=== PATIENT | male | born 1970 | race Caucasian/White ===

== ENCOUNTER 2019-03-31 11:59 | Inpatient (IN) ==
[2019-03-31] MEDS ORDERED: Thiamine (B-1) 100 MG in 0.9 % Sodium Chloride 100 ML IVPB STA (12:15)
[2019-03-31] MEDS ORDERED: Lactulose 200 GM, Sodium Chloride IRRigation 700 ML RC ONE (12:15)
[2019-03-31] MEDS ORDERED: 0.9 % Sodium Chloride 500 ML IVC ONE (12:15)
--- NOTE | 2019-03-31 12:17 | Emergency Department Note ---
Disposition Clinical Impression: Delirium due to general medical condition, Hepatic encephalopathy, Hyperkalemia, Hyponatremia Acute renal failure Qualifiers: Acute renal failure type: unspecified Qualified Code(s): N17.9 - Acute kidney failure, unspecified Acute hepatic failure Qualifiers: Hepatic coma status: with hepatic coma Qualified Code(s): K72.01 - Acute and subacute hepatic failure with coma Disposition: Admitted As Inpatient Referrals: Richie Garzon MD [Primary Care Provider] - Time of Disposition: 13:35 Altered Mental Status HPI - General Stated Complaint: unresponsive Time Seen by Provider: 03/31/19 12:13 Source: family, EMS Mode of arrival: EMS Limitations: altered mental status Nursing Notes Reviewed: Yes Vital Signs Reviewed: Yes - History of Present Illness HPI Narrative: Patient has a history of hepatic encephalopathy and 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 He according to his who is POA has been on the [facility] liver transplant list, was admitted there last week and discharged just 7 days ago. She states that he is a "DNR CC and had been considering hospice. She states that he is "suffered enough" She indicates that she had had him on lactulose doses 3 times daily and that he was taking those yesterday. He was unresponsive this morning though she was unable to wake him up. She is not really sure when this occurred since he had not been seen normal since last night. She states that he had been complaining of some headache and abdominal pain. Patient has not used drugs in 3-1/2 years. Does not use alcohol EMS indicates that they gave him Narcan without any change in his mental status but those vital signs were good with a pulse of 83 and a pulse ox of 98% MD complaint: altered mental status Onset (ago): hour(s) Timing confirmed by: spouse Context: drug abuse (None for 3-1/2 years), history of similar presentation (Return to episodes of hepatic encephalopathy) Associated symptoms: Reports: headaches, malaise Treatments prior to arrival: other (Narcan) - Related Data Home Medications Medication Instructions Recorded Confirmed Albuterol Sulfate [Proair Hfa] 2 puff IH Q4H PRN 01/07/18 03/31/19 Fluticasone/Salmeterol [Advair 1 puff IH BID 01/07/18 03/31/19 250-50 Diskus] Tiotropium [Spiriva] 2 puff IH 0700 01/07/18 03/31/19 Omeprazole [PriLOSEC] 40 mg PO BID 05/26/18 03/31/19 Rifaximin [Xifaxan] 550 mg PO BID 08/13/18 03/31/19 Spironolactone [Aldactone] 200 mg PO BID 08/13/18 03/31/19 Lactulose 20 gm PO DAILY 09/22/18 03/31/19 Bumetanide [Bumex] 3 mg PO DAILY 10/01/18 03/31/19 Cyclobenzaprine HCl 10 mg PO TID PRN 01/26/19 03/31/19 Gabapentin [Neurontin] 300 mg PO TID 01/26/19 03/31/19 Ondansetron HCl [Zofran] 4 mg PO QID PRN 01/26/19 03/31/19 Allergies Allergy/AdvReac Type Severity Reaction Status Date / Time No Known Allergies Allergy Verified 02/14/19 20:22 Limitations: ROS unobtainable due to patients medical condition Past Medical History - Past Medical History Medical history: Reports: cirrhosis, CHF, COPD, hepatitis, hypertension, kidney stones, liver disease Surgical history: Reports: no surgical history Psychiatric history: Reports: no psych history - Social History Smoking Status: Current every day smoker Smokeless Tobacco Status: No Alcohol use: Reports: none Drug use: Reports: none Physical Exam Constitutional: Patient is unresponsive to verbal stimuli, grimaces to painful stimuli. Skin color is icteric. Appears well hydrated, body habitus obese. He appears chronically ill . Head: Normocephalic and atraumatic. External ear exam normal Nose: Nose normal. Mouth/Throat: Uvula is midline, oropharynx is clear and moist and mucous membranes are normal. Eyes: Scleral icterus. Pupils are equal, round, and reactive to light. Corneal reflex noted to be normal Neck: Normal range of motion and phonation normal. Neck supple. No JVD Cardiovascular: Normal rate, regular rhythm, normal heart sounds. Pulmonary/Chest: He arrives in Respiratory distress. With increase Respiratory Effort and diminished breath sounds throughout. He has blowing respirations. His pulse ox is 98% on room air. I was concerned that he was not protecting his airway so a nasal trumpet was placed in the right nares. Abdominal: Soft. Slightly distended without obvious fluid wave and bowel sounds are diminished. no masses. Prominence with mass at the right upper quadrant Musculoskeletal: Good distal pulses. Soft compartments. Brisk cap refill. Extremities:Intact peripheral pulses. 1+ dependent bilateral Edema. Extremity skin color icteric, no calf palpable cords. Neurological: GCS 7. Patient is obtunded .unable to test for motor deficits Skin: Skin is warm, dry and intact. color is jaundice, cap refill is quick Psychiatric: Patient nonverbal Course - Reevaluation(s) Reevaluation #1: Patient unchanged. has produced papers that she is patient's POA and continues to emphasize she does not want him resuscitated with extreme means but treated for medical issues as possible Evaluation reveals severe hyperkalemia, hyponatremia, acute renal failure, hepatic failure, hepatic encephalopathy. Treatment for these have been ordered at this time. Time: 13:02 Reevaluation #2: ReTurned to bedside for reevaluation. Patient is unchanged. Vital signs are normal but he remains blowing respirations, even and respiratory rate of 18. Pulse ox 100% on 2 L nasal cannula. Multiple family members present. I discussed with them the patient's profound renal insufficiency, hepatic failure, dehydration, hepatic encephalopathy, hyponatremia, hyperkalemia and its treatment. They agreed that the patient should be treated with reasonable means for these issues but without mechanical ventilation, electricity through his heart, or CPR. The family indicates that he was made a DNR at [facility] when he was released last Friday and was being considered for taken off the transplant list. Family and patient's who is P OA are comfortable with this plan and request that he be hospitalized here instead of transfer back up to [facility]. I believe this is reasonable. I have instituted med orders for his severe hyperkalemia. At 1333 I paced a call to Dr. Grimaldo medical education coordinator for hospitalist to discuss the patient's case. Time: 13:32 Reevaluation #3: Discussed case with Dr. Grimaldo who agrees to accept the patient to the floor. He has requested that I enter initial orders and he will see him in a timely fashion. Time: 14:08 Vital Signs Temperature 98.0 F 03/31/19 11:59 Pulse Rate 73 03/31/19 11:59 Respiratory Rate 16 03/31/19 11:59 Blood Pressure 127/45 03/31/19 11:59 O2 Sat by Pulse Oximetry 96 03/31/19 11:59 Temperature 98.0 F 03/31/19 11:59 Pulse Rate 85 03/31/19 13:57 Respiratory Rate 14 03/31/19 13:57 Blood Pressure 122/50 03/31/19 13:57 O2 Sat by Pulse Oximetry 94 03/31/19 13:57 Oxygen Delivery Oxygen Delivery Nasal Cannula Altered Mental Status - MDM Narrative Medical decision making narrative: Symptoms likely due to hepatic encephalopathy. Patient at bedside indic ates that she is power of tax associate attorney. They have discussed CODE STATUS and he does not want to be resuscitated with all kinds of tubes. She states that he signed forms in the detention last week but they do not have them with him. She contacted family members and had a discussion by phone and then came back to me indicating that she wanted to on her the patient's request for DNR CC. For this reason I did not intubate this patient to otherwise would have likely been a candidate for because of his low GCS and evidence of tachypnea and respiratory distress. I have treated him within the wound of the request for DNR CC - Medical Records Medical records reviewed: Yes I reviewed the patient's medical records. - Lab Data Lab results reviewed: Yes I reviewed the patient's lab results. Result diagrams: 03/31/19 12:27 03/31/19 12:27 Lab Results 03/31/19 03/31/19 03/31/19 Range/Units 12:27 12:27 12:27 WBC 9.0 (4.3-11.1) K/mcL RBC 3.40 L (4.19-5.50) M/mcL Hgb 11.7 L (12.9-16.9) g/dL Hct 33.1 L (37.5-50.1) % MCV 97.4 (83.0-100.0) fL MCH 34.4 H (28.0-33.3) pg MCHC 35.3 (31.6-35.5) g/dL RDW 15.1 H (11.5-14.5) % Plt Count 51 L (140-400) K/mcL MPV 13.0 H (9.4-12.4) fL Immature Gran % 0.6 (0-4) % Seg Neutrophils % 73.6 % Lymphocytes % 13.2 % Monocytes % 9.7 % Eosinophils % 2.6 % Basophils % 0.3 % Neutrophils # 6.6 (1.6-8.9) K/mcL Lymphocytes # 1.2 (0.6-4.6) K/mcL Monocytes # 0.9 (0.0-1.3) K/mcL Eosinophils # 0.2 (0.0-0.6) K/mcL Basophils # 0.0 (0.0-0.2) K/mcL PT 17.8 H (9.4-12.1) Seconds INR 1.6 APTT 38.0 H (26.0-36.0) Seconds VBG pH (7.32-7.42) pH Units VBG pCO2 (41-51) mmHg VBG pO2 (25-50) mmHg VBG HCO3 (21-27) mEq/L Sodium 126 L (136-145) mEq/L Potassium 6.2 H (3.5-5.1) mEq/L Chloride 95 L (98-107) mEq/L Carbon Dioxide 21 L (23-29) mEq/L BUN 40 H (6-20) mg/dL Creatinine 2.16 H (0.70-1.30) mg/dL Est GFR ( Amer) 40 L (> 60) Est GFR (Non-Af Amer) 33 L (> 60) BUN/Creatinine Ratio 19 (6-26) Glucose 114 H (70-105) mg/dL Calculated Osmolality 273 L (280-300) Lactic Acid (0.5-2.2) mmol/L Calcium 9.4 (8.6-10.3) mg/dL Total Bilirubin 5.9 H (0.3-1.0) mg/dL Direct Bilirubin 2.3 H (0.0-0.2) mg/dL Indirect Bilirubin 3.6 H (0.0-1.2) mg/dL AST 60 H (13-39) Units/L ALT 49 (7-52) Units/L Alkaline Phosphatase 57 (34-104) Units/L Ammonia (16-53) mcmol/L Creatine Kinase 43 (30-223) Units/L Troponin I < 0.03 (< 0.04) ng/mL Serum Total Protein 5.9 L (6.4-8.9) g/dL Albumin 3.7 (3.5-5.7) g/dL Globulin 2.2 L (2.4-3.5) g/dL Albumin/Globulin Ratio 1.7 (1.1-2.2) Urine Color (Yellow) Urine Clarity (Clear) Urine pH (5.0-8.0) pH Units Ur Specific [place] (1.010-1.025) Urine Protein (Neg-Trace) mg/dL Urine Glucose (UA) (Normal) mg/dL Urine Ketones (Negative) mg/dL Urine Blood (Negative) Urine Nitrite (Negative) Urine Bilirubin (Negative) Urine Urobilinogen (Normal) mg/dL Ur Leukocyte Esterase (Negative) Ur Culture Indicated? (NO) Urine Opiates Screen (Osjnko=578) ng/mL Ur Buprenorphine Scrn (Cutoff=5) ng/mL Ur Barbiturates Screen (Vuxeib=301) ng/mL Ur Phencyclidine Scrn (Cutoff=25) ng/mL Ur Amphetamines Screen (Noycud=8200) ng/mL U Benzodiazepines Scrn (Riqypy=010) ng/mL Urine Cocaine Screen (Cutoff= 300) ng/mL U Marijuana (THC) Screen (Cutoff = 50) ng/mL Ur Drug Screen Interp Ethyl Alcohol < 10 (Less than 10) mg/dL 03/31/19 03/31/19 03/31/19 Range/Units 12:27 12:27 12:38 WBC (4.3-11.1) K/mcL RBC (4.19-5.50) M/mcL Hgb (12.9-16.9) g/dL Hct (37.5-50.1) % MCV (83.0-100.0) fL MCH (28.0-33.3) pg MCHC (31.6-35.5) g/dL RDW (11.5-14.5) % Plt Count (140-400) K/mcL MPV (9.4-12.4) fL Immature Gran % (0-4) % Seg Neutrophils % % Lymphocytes % % Monocytes % % Eosinophils % % Basophils % % Neutrophils # (1.6-8.9) K/mcL Lymphocytes # (0.6-4.6) K/mcL Monocytes # (0.0-1.3) K/mcL Eosinophils # (0.0-0.6) K/mcL Basophils # (0.0-0.2) K/mcL PT (9.4-12.1) Seconds INR APTT (26.0-36.0) Seconds VBG pH 7.46 H (7.32-7.42) pH Units VBG pCO2 30 L (41-51) mmHg VBG pO2 126 H (25-50) mmHg VBG HCO3 21 (21-27) mEq/L Sodium (136-145) mEq/L Potassium (3.5-5.1) mEq/L Chloride (98-107) mEq/L Carbon Dioxide (23-29) mEq/L BUN (6-20) mg/dL Creatinine (0.70-1.30) mg/dL Est GFR ( Amer) (> 60) Est GFR (Non-Af Amer) (> 60) BUN/Creatinine Ratio (6-26) Glucose (70-105) mg/dL Calculated Osmolality (280-300) Lactic Acid 2.7 H (0.5-2.2) mmol/L Calcium (8.6-10.3) mg/dL Total Bilirubin (0.3-1.0) mg/dL Direct Bilirubin (0.0-0.2) mg/dL Indirect Bilirubin (0.0-1.2) mg/dL AST (13-39) Units/L ALT (7-52) Units/L Alkaline Phosphatase (34-104) Units/L Ammonia 277 H (16-53) mcmol/L Creatine Kinase (30-223) Units/L Troponin I (< 0.04) ng/mL Serum Total Protein (6.4-8.9) g/dL Albumin (3.5-5.7) g/dL Globulin (2.4-3.5) g/dL Albumin/Globulin Ratio (1.1-2.2) Urine Color (Yellow) Urine Clarity (Clear) Urine pH (5.0-8.0) pH Units Ur Specific [place] (1.010-1.025) Urine Protein (Neg-Trace) mg/dL Urine Glucose (UA) (Normal) mg/dL Urine Ketones (Negative) mg/dL Urine Blood (Negative) Urine Nitrite (Negative) Urine Bilirubin (Negative) Urine Urobilinogen (Normal) mg/dL Ur Leukocyte Esterase (Negative) Ur Culture Indicated? (NO) Urine Opiates Screen (Jlmoav=914) ng/mL Ur Buprenorphine Scrn (Cutoff=5) ng/mL Ur Barbiturates Screen (Bryjrg=830) ng/mL Ur Phencyclidine Scrn (Cutoff=25) ng/mL Ur Amphetamines Screen (Jiioaf=5716) ng/mL U Benzodiazepines Scrn (Vxdctk=386) ng/mL Urine Cocaine Screen (Cutoff= 300) ng/mL U Marijuana (THC) Screen (Cutoff = 50) ng/mL Ur Drug Screen Interp Ethyl Alcohol (Less than 10) mg/dL 03/31/19 03/31/19 Range/Units 12:51 12:51 WBC (4.3-11.1) K/mcL RBC (4.19-5.50) M/mcL Hgb (12.9-16.9) g/dL Hct (37.5-50.1) % MCV (83.0-100.0) fL MCH (28.0-33.3) pg MCHC (31.6-35.5) g/dL RDW (11.5-14.5) % Plt Count (140-400) K/mcL MPV (9.4-12.4) fL Immature Gran % (0-4) % Seg Neutrophils % % Lymphocytes % % Monocytes % % Eosinophils % % Basophils % % Neutrophils # (1.6-8.9) K/mcL Lymphocytes # (0.6-4.6) K/mcL Monocytes # (0.0-1.3) K/mcL Eosinophils # (0.0-0.6) K/mcL Basophils # (0.0-0.2) K/mcL PT (9.4-12.1) Seconds INR APTT (26.0-36.0) Seconds VBG pH (7.32-7.42) pH Units VBG pCO2 (41-51) mmHg VBG pO2 (25-50) mmHg VBG HCO3 (21-27) mEq/L Sodium (136-145) mEq/L Potassium (3.5-5.1) mEq/L Chloride (98-107) mEq/L Carbon Dioxide (23-29) mEq/L BUN (6-20) mg/dL Creatinine (0.70-1.30) mg/dL Est GFR ( Amer) (> 60) Est GFR (Non-Af Amer) (> 60) BUN/Creatinine Ratio (6-26) Glucose (70-105) mg/dL Calculated Osmolality (280-300) Lactic Acid (0.5-2.2) mmol/L Calcium (8.6-10.3) mg/dL Total Bilirubin (0.3-1.0) mg/dL Direct Bilirubin (0.0-0.2) mg/dL Indirect Bilirubin (0.0-1.2) mg/dL AST (13-39) Units/L ALT (7-52) Units/L Alkaline Phosphatase (34-104) Units/L Ammonia (16-53) mcmol/L Creatine Kinase (30-223) Units/L Troponin I (< 0.04) ng/mL Serum Total Protein (6.4-8.9) g/dL Albumin (3.5-5.7) g/dL Globulin (2.4-3.5) g/dL Albumin/Globulin Ratio (1.1-2.2) Urine Color Yellow (Yellow) Urine Clarity Clear (Clear) Urine pH 7.0 (5.0-8.0) pH Units Ur Specific [place] 1.015 (1.010-1.025) Urine Protein Negative (Neg-Trace) mg/dL Urine Glucose (UA) Normal (Normal) mg/dL Urine Ketones Negative (Negative) mg/dL Urine Blood Negative (Negative) Urine Nitrite Negative (Negative) Urine Bilirubin Negative (Negative) Urine Urobilinogen Normal (Normal) mg/dL Ur Leukocyte Esterase Negative (Negative) Ur Culture Indicated? NO (NO) Urine Opiates Screen Negative (Vcnldc=860) ng/mL Ur Buprenorphine Scrn Negative (Cutoff=5) ng/mL Ur Barbiturates Screen Negative (Zaabef=660) ng/mL Ur Phencyclidine Scrn Negative (Cutoff=25) ng/mL Ur Amphetamines Screen Negative (Beordk=3247) ng/mL U Benzodiazepines Scrn Negative (Tjkusn=783) ng/mL Urine Cocaine Screen Negative (Cutoff= 300) ng/mL U Marijuana (THC) Screen Negative (Cutoff = 50) ng/mL Ur Drug Screen Interp See Below Ethyl Alcohol (Less than 10) mg/dL - Radiology Data Radiology results reviewed: Yes I reviewed the patient's radiology results. FINDINGS: There are low lung volumes. No focal airspace consolidation, pleural effusion or pneumothorax is demonstrated. The heart is normal in size. No acute osseous abnormality is seen. XR/XR chest 1V portable IMPRESSION: Low lung volumes. No acute cardiopulmonary disease D/ / Yanick Pierre MD / Yanick Pierre MD Interpreting Provider: Yanick Pierre MD brain impression from radiology "no acute intracranial abnormality " - EKG Data EKG attestation: Yes I reviewed and interpreted this EKG. EKG results narrative: ECG sinus rhythm, rate of 72, prominent T waves, inverted T waves in lead 3 and aVF and lead V1. No ST depression or elevation. No evidence of acute ischemia TPA Checklist - LKW: 3-4.5 hrs Add. Warnings/Precautions Patient/family understanding: The patient/family members have been counseled and understood the risk, benefit, and alternatives of treatment. Critical Care Time Critical Care Time: Yes Attestation: Critical care provided for this patient of which 35 minutes were spent on critical care including at patient bedside, record review, evaluation of results, conversation with consultants and decision making and 0 minutes for procedures There was imminent failure of an organ system which required critical in tervention to prevent clinically significant progression of life-threatening deterioration of the patient's condition to the point of disability or
[2019-03-31 12:30] LABS: Basophils % 0.3 %; Eosinophils # 0.2 K/mcL (0.0-0.6); Eosinophils % 2.6 %; Hematocrit 33.1 % (37.5-50.1); Hemoglobin 11.7 g/dL (12.9-16.9); Immature Granulocytes % 0.6 % (0-4); Lymphocytes # 1.2 K/mcL (0.6-4.6); Lymphocytes % 13.2 %; Mean Corpuscular HGB Conc 35.3 g/dL (31.6-35.5); Mean Corpuscular Hemoglobin 34.4 pg (28.0-33.3); Mean Corpuscular Volume 97.4 fL (83.0-100.0); Monocytes # 0.9 K/mcL (0.0-1.3); Monocytes % 9.7 %; Neutrophils # 6.6 K/mcL (1.6-8.9); Red Cell Distribution Width 15.1 % (11.5-14.5); Segmented Neutrophils % 73.6 %
[2019-03-31 12:31] LABS: INR 1.6; Prothrombin Time 17.8 Seconds (9.4-12.1)
[2019-03-31 12:36] LABS: Platelet Count 51 K/mcL (140-400)
[2019-03-31 12:45] LABS: VBG HCO3 21 mEq/L (21-27); VBG PCO2 30 mmHg (41-51); VBG PH 7.46 pH Units (7.32-7.42); VBG PO2 126 mmHg (25-50)
[2019-03-31] MEDS ORDERED: Lactulose Oral Soln 20 GM/30 ML UDC RC ONE (12:45)
[2019-03-31 12:46] LABS: Troponin I < 0.03 ng/mL (< 0.04)
[2019-03-31 12:47] LABS: Alanine Aminotransferase 49 Units/L (7-52); Albumin 3.7 g/dL (3.5-5.7); Albumin/Globulin Ratio 1.7 (1.1-2.2); Alkaline Phosphatase 57 Units/L (34-104); Aspartate Amino Transferase 60 Units/L (13-39); BUN/Creatinine Ratio 19 (6-26); Bilirubin,Direct 2.3 mg/dL (0.0-0.2); Bilirubin,Indirect 3.6 mg/dL (0.0-1.2); Bilirubin,Total 5.9 mg/dL (0.3-1.0); Blood Urea Nitrogen 40 mg/dL (6-20); Calcium 9.4 mg/dL (8.6-10.3); Carbon Dioxide 21 mEq/L (23-29); Chloride 95 mEq/L (98-107); Creatine Kinase 43 Units/L (30-223); Ethanol < 10 mg/dL (Less than 10); Globulin 2.2 g/dL (2.4-3.5); Glucose 114 mg/dL (70-105); Osmolality,Calculated 273 (280-300); Potassium 6.2 mEq/L (3.5-5.1); Sodium 126 mEq/L (136-145); Total Protein 5.9 g/dL (6.4-8.9); eGFR For African Americans 40 (> 60); eGFR For Non-African Americans 33 (> 60)
[2019-03-31] MEDS ORDERED: Albuterol 2.5 MG/3 ML NEBULIZER IH ONE (12:56)
[2019-03-31] MEDS ORDERED: Insulin Human Regular 10 UNIT in 0.9 % Sodium Chloride 10 ML IV ONE (12:58)
[2019-03-31] MEDS ORDERED: Sodium Bicarbonate 50 MEQ/50 ML VIAL IVP ONE (13:00)
[2019-03-31] MEDS ORDERED: *HR* Dextrose 50 % in Water (Syg) 50 ML SYRINGE IVP ONE (13:00)
[2019-03-31 13:08] LABS: Bilirubin,Urine Negative (Negative); Blood,Urine Negative (Negative); Clarity,Urine Clear (Clear); Color,Urine Yellow (Yellow); Glucose,Urine (UA) Normal (Normal); Ketones,Urine Negative (Negative); Leukocyte Esterase,Urine Negative (Negative); Nitrite,Urine Negative (Negative); Protein,Urine Negative (Neg-Trace); Specific Gravity,Urine 1.015 (1.010-1.025); Urobilinogen,Urine Normal (Normal)
[2019-03-31 13:18] LABS: Amphetamine Screen,Urine Negative ng/mL (Cutoff=1000); Barbiturate Screen,Urine Negative ng/mL (Cutoff=200); Benzodiazepines Screen,Urine Negative ng/mL (Cutoff=200); Cannabinoid Screen,Urine Negative ng/mL (Cutoff = 50); Cocaine Screen,Urine Negative ng/mL (Cutoff= 300); Opiate Screen,Urine Negative ng/mL (Cutoff=300); Phencyclidine Screen,Urine Negative ng/mL (Cutoff=25)
--- NOTE | 2019-03-31 15:41 | Event Note ---
Date of Encounter: 03/31/19 Time of Encounter: 15:39 I spoke with who admitted the patient to the emergency room. I spoke with patient's POA, , wishes him to be DNR CC and wishes to avoid anything except comfort. We will discontinue all venipuncture except for IV if needed. Reviewed with nursing.
[2019-03-31] MEDS: 0.9 % Sodium Chloride 1,000 ML IVC SCH (15:43)
[2019-03-31] MEDS ORDERED: Lactulose 200 GM/300 ML (for enema) RC SCH (15:44)
[2019-03-31] MEDS ORDERED: Ondansetron 4 MG/2 ML VIAL IVP PRN (15:44)
[2019-03-31] MEDS ORDERED: Budesonide/Formoterol 80/4.5 1 PUFF INH IH SCH (15:44)
[2019-03-31] MEDS ORDERED: 0.9 % Sodium Chloride 1,000 ML IVC SCH (15:44)
[2019-03-31] MEDS ORDERED: Naloxone 0.4 MG/ML INJ IVP PRN (15:44)
[2019-03-31 16:16] LABS: Magnesium 2.3 mg/dL (1.6-2.6); Phosphorous 3.8 mg/dL (2.7-4.5)
[2019-03-31] MEDS ORDERED: Scopolamine Patch 1.5 MG PATCH.TD72 TD SCH (18:30)
[2019-03-31] MEDS: Morphine Sulfate 2 MG/ML SYRINGE IVP PRN (20:16)
--- NOTE | 2019-03-31 21:21 | Electrocardiograph Report ---
[place] [id number] Test Date: 2019-03-31 Pat Name: Asael Quinonez Department: EDG5 Room: 113 Gender: M Assistant Secretary: : 1970 Requested By: Marissa Dennis Order Number: [id number] Reading MD: Alba Mckeon Measurements Intervals [place] Rate: 72 P: 30 KS: 172 QRS: -84 QRSD: 134 T: 0 QT: 436 QTc: 478 Interpretive Statements Sinus rhythm Nonspecific IVCD with LAD Probable normal early repol pattern Electronically Signed On 03-31-2019 21:20:09 EDT by Alba Mckeon
[2019-04-01] MEDS: Morphine Sulfate 2 MG/ML SYRINGE IVP PRN ×2 (00:53→05:45)
[2019-04-01] MEDS ORDERED: Tiotropium 18 MCG inhalation IH SCH ×2 (07:00)
[2019-04-01] MEDS ORDERED: *HR* LORazepam 2 MG/ML VIAL IVP PRN (08:13)
[2019-04-01] MEDS ORDERED: Morphine Sulfate Oral CONC 10 MG/0.5 ML ORAL.SYG SL PRN (09:20)
[2019-04-01] MEDS ORDERED: *HR* LORazepam Oral Conc 2 MG/ML SL PRN (09:20)
[2019-04-01] MEDS ORDERED: Ondansetron ODT 4 MG TAB.RAPDIS SL PRN (09:23)
--- NOTE | 2019-04-01 13:19 | Internal Med History&Physical ---
Date of Encounter: 04/01/19 Time of Encounter: 13:15 Assessment and Plan (1) Hepatic encephalopathy Current visit: Yes Status: Acute Patient has been admitted to the emergency department with hepatic encephalopathy and hepatic failure. Patient's CODE STATUS has been changed to a DNR CC and patient's family has requested comfort measures only. Initial labs showed multiple severe abnormal levels to include a ammonia level of 277. Patient has been started on comfort meds and we will continue to titrate for effectiveness. Hospice has been consulted with a goal communicated with family of returning patient to home for terminal care. (2) COPD (chronic obstructive pulmonary disease) Current visit: No Status: Acute No acute issues. Patient pulmonary status appears relaxed. We will continue with current medications Qualifiers: COPD type: unspecified COPD Qualified Code(s): J44.9 - Chronic obstructive pulmonary disease, unspecified (3) Delirium due to general medical condition Current visit: Yes Status: Acute Patient remains lethargic Internal Medicine - H&P: HPI Chief complaint: hepatic failure Admitted From: Emergency Dept Plans for Post Hospital Care: Home History of present illness: Mr. 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 He according to his who is POA has been on the [facility] liver transplant list, was admitted there last week and discharged just 7 days ago. She states that he is a "DNR CC and had been considering hospice. She states that he is "suffered enough" She indicates that she had had him on lactulose doses 3 times daily and that he was taking those yesterday. He was unresponsive that next morning and she was unable to wake him up. She states that he had been complaining of some headache and abdominal pain. He was then transported to the ED for evaluation. Patient has not used drugs in 3-1/2 years. Does not use alcohol While in the emergency department patient's stated that they do not wish for him to be transferred back to [facility] and agreed to have him admitted at this facility for treatment of acute issues and for comfort measures. Patient's initial lab work while in the emergency department showed severe hyperkalemia at 6.2 and hyponatremia at 126. Patient had thrombocytopenia with a platelet count of 51. Patient's stated that his discharge ammonia level was less than 100 approximately a week and a half ago at [facility], but on admission his ammonia level was 277. Patient's prognosis was discussed at length with and mother who had stated that they have decided to take a palliative approach for his care and remove him from the transplant list. They agreed with recommendations of having hospice come in and evaluate patient with a goal of taking him home for terminal care. Patient currently is stuporous but does open eyes to physical stimulus and can answer simple questions at times with one to 2 word answers, which at times is garbled. Patient drips and out of sleep and at times becomes restless in bed. Patient's oral medications have been held due to him being lethargic. She has been started on comfort meds and hospice alerted Past Med Surg Social Fam HX - Past Medical History Medical history: cirrhosis, CHF, COPD, hepatitis, hypertension, kidney stones, liver disease Additional medical history: hep C. Psychiatric history: no psych history - Past Surgical History Surgical History: no surgical history Additional surgical history: BILAT TUBES IN EARS,COLONOSCOPY,EGD,ESOPHAGEAL VARICES WITH BANDING - Social History Smoking Status: Current every day smoker Smokeless Tobacco Status: No Alcohol use: none Drug use: none - Family History Brother Living Status: Still Living Hx Family Cardiac Disorders: Yes Hx Family Endocrine Disorder: Yes Father Living Status: Hx Family Cancer: Yes (Lung) Internal Medicine - H&P: Meds Albuterol Sulfate [Proair Hfa] 2 puff IH Q4H PRN 01/07/18 [History] Fluticasone/Salmeterol [Advair 250-50 Diskus] 1 puff IH BID 01/07/18 [History] Tiotropium [Spiriva] 2 puff IH 0700 01/07/18 [History] Omeprazole [PriLOSEC] 40 mg PO BID 05/26/18 [History] Rifaximin [Xifaxan] 550 mg PO BID 08/13/18 [History] Spironolactone [Aldactone] 200 mg PO BID 08/13/18 [History] Lactulose 20 gm PO DAILY 09/22/18 [History] Bumetanide [Bumex] 3 mg PO DAILY 10/01/18 [History] Cyclobenzaprine HCl 10 mg PO TID PRN 01/26/19 [History] Gabapentin [Neurontin] 300 mg PO TID 01/26/19 [History] Ondansetron HCl [Zofran] 4 mg PO QID PRN 01/26/19 [History] Allergy/AdvReac Type Severity Reaction Status Date / Time No Known Allergies Allergy Verified 02/14/19 20:22 All Systems PM: A 10-system review of systems was performed and is negative for pertinent findings except as documented above in the HPI. - Constitutional Constitutional: no chills, no fever(s), no night sweats - EENT Eyes: as per HPI, no change in vision, no discharge, no pain, no photophobia Ears: no ear discharge, no ear pain, no tinnitus Nose, mouth and throat: as per HPI, no dysphagia, no nasal discharge, no neck pain, no sore throat - Breasts Breasts: as per HPI - Cardiovascular Cardiovascular ROS IM: as per HPI, no chest pain, no diaphoresis, no dyspnea, no lightheadedness, no palpitations, no syncope - Respiratory Respiratory: as per HPI, no cough, no dyspnea, no wheezing, no excessive phlegm production - Gastrointestinal Gastrointestinal: as per HPI, no abdominal pain, no diarrhea, no hematemesis, no hematochezia, no melena, no nausea, no vomiting - Genitourinary Genitourinary ROS male: as per HPI - Musculoskeletal Musculoskeletal ROS IM: as per HPI, no numbness, no tingling - Integumentary Integumentary IM: as per HPI, no rash, no unusual bruising - Neurological Neurological ROS: as per HPI, no confusion, no convulsions, no focal weakness, no numbness, no tingling, no tremor(s) - Psychiatric Psychiatric: as per HPI - Endocrine Endocrine IM: as per HPI - Hematologic/Lymphatic Hematologic/Lymphatic: no easy bruising - Constitutional Vitals: Temp Pulse Resp BP Pulse Ox 100.1 F H 91 16 116/52 96 04/01/19 11:08 04/01/19 11:08 04/01/19 11:08 04/01/19 11:08 04/01/19 11:08 General appearance: Present: A&O X 1 Exam: Patient currently is lethargic, opening his eyes to physical stimulus. Answers simple questions with one to 2 word answers that at times garbled. Quickly fal ls back asleep when not stimulated - Head Head exam: Present: atraumatic, normocephalic - Eye Eye exam: Present: PERRL, conjuntiva pink, sclera anicteric Pupils: Present: PERRL Additional comments: Jaundice - Neck Neck exam general surgery: Present: supple, trachea midline. Absent: lymphadenopathy - Respiratory Respiratory exam: Present: decreased breath sounds, CTAB. Absent: accessory m uscle use, rales, rhonchi, wheezes Additional comments: tachypneic. No NAD - Cardiovascular Cardiovascular exam: Present: RRR, +S1, +S2. Absent: diastolic murmur, gallop, rubs, systolic murmur - GI/Abdominal GI/Abdominal exam: Present: normal bowel sounds, soft, no peritoneal signs. Absent: distended, tenderness - Extremities Exam Extremities exam: Present: warm, radial pulses palpable and symmetrical. Absent: calf tenderness, cyanotic, pedal edema - Neurological Exam Neurological exam: Present: CN II-XII intact. Absent: pronater drift, facial droop, speech deficit Additional comments: Patient remains lethargic but will awaken to stimulus. Confused and unable to follow commands. Answers simple questions at times with one to 2 word answers that often is garbled. Moves all extremities with generalized weakness. - Skin Skin exam: Present: dry, intact Internal Med - H&P Results - Labs CBC & Chem 7: 03/31/19 12:27 03/31/19 12:27 - ABG Interpretation ABG results: 03/31/19 12:38 VBG pH 7.46 H VBG pCO2 30 L VBG pO2 126 H VBG HCO3 21 - Impressions ITS Impressions Chest X-Ray 03/31/19 12:49 IMPRESSION: Low lung volumes. No acute cardiopulmonary disease D/ / Yanick Pierre MD / Yanick Pierre MD Interpreting Provider: Yanick Pierre MD Head CT 03/31/19 12:50 IMPRESSION: No acute intracranial abnormality. D/ / Piero Valdez MD / Piero Valdez MD Interpreting Provider: Piero Valdez MD - VTE Reasons for not Prescribing Prophylaxis: Medical contraindication
[2019-04-01] MEDS ORDERED: Haloperidol Lactate 5 MG/ML VIAL IM ONE (16:19)
[2019-04-01] MEDS: *HR* LORazepam Oral Conc 2 MG/ML SL PRN (20:40)
[2019-04-02] MEDS: Haloperidol Lactate 5 MG/ML VIAL IM PRN ×2 (00:16→11:37)
[2019-04-02] MEDS: *HR* LORazepam Oral Conc 2 MG/ML SL PRN ×2 (05:42→09:13)
[2019-04-02 10:23] VITALS: BP 116/64
--- NOTE | 2019-04-02 12:29 | Physician Discharge Referral ---
Home Health/Hosp Referral Info Transfer to: Hospice Provider in Charge Post Discharge: Change Management Lead - Diagnosis (1) History of hepatitis C Priority: Secondary Status: Chronic (2) Liver failure Priority: Primary Status: Acute (3) Delirium due to general medical condition Priority: Secondary Status: Acute - Respiratory Orders Smoking Cessation: Smoking cessation has been advised. For more information, call the [place] Tobacco Quit Line at 2-138-NIZV-NOW. - Services Needed Following services are medically necessary services: Nursing - Transfer Medications Home Medications: Albuterol Sulfate [Proair Hfa] 2 puff IH Q4H PRN 01/07/18 [History] Fluticasone/Salmeterol [Advair 250-50 Diskus] 1 puff IH BID 01/07/18 [History] Tiotropium [Spiriva] 2 puff IH 0700 01/07/18 [History] Omeprazole [PriLOSEC] 40 mg PO BID 05/26/18 [History] Rifaximin [Xifaxan] 550 mg PO BID 08/13/18 [History] Spironolactone [Aldactone] 200 mg PO BID 08/13/18 [History] Lactulose 20 gm PO DAILY 09/22/18 [History] Bumetanide [Bumex] 3 mg PO DAILY 10/01/18 [History] Cyclobenzaprine HCl 10 mg PO TID PRN 01/26/19 [History] Gabapentin [Neurontin] 300 mg PO TID 01/26/19 [History] Ondansetron HCl [Zofran] 4 mg PO QID PRN 01/26/19 [History] Allergies/Adverse Reactions: Allergy/AdvReac Type Severity Reaction Status Date / Time No Known Allergies Allergy Verified 02/14/19 20:22 Certification: Further, I certify that my clinical findings support that this patient is homebound (i.e. absences from home require considerable and taxing effort and are for medical reasons or mandaen services or infrequently or short duration when for other reasons) because: Homebound Reason: Patient requires assistance of a person or device to safely leave home, Leaving home requires considerable and taxing effort due to condition, Altered mental status requiring supervision when leaving home Attestation: My signature below is to certify that this patient is under my care and that I, or nurse practitioner, or a physician's assistant import manager working with me, has a [id number] encounter with this patient.
--- NOTE | 2019-04-02 12:38 | Discharge Summary ---
Date of Encounter: 04/02/19 Time of Encounter: 12:30 - Discharge Diagnosis (1) History of hepatitis C Priority: Secondary Status: Chronic Comments: Discharging to home with hospice. Acute liver failure. (2) Liver failure Priority: Primary Status: Acute Comments: Discharging to home with hospice care. Comfort care measures in place. Qualifiers: Liver failure chronicity: acute Hepatic coma status: without hepatic coma Qualified Code(s): K72.00 - Acute and subacute hepatic failure without coma (3) Delirium due to general medical condition Priority: Secondary Status: Acute Comments: Continue current medication. Hospice to manage at discharge. Hospital course: Mr. Quinonez is a 48 year old male discharging to home with hospice for comfort care. 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 He according to his who is POA has been on the [facility] liver transplant list, was admitted there last week and discharged just 7 days ago. She states that he is a "DNR CC and had been considering hospice. She states that he is "suffered enough" She indicates that she had had him on lactulose doses 3 times daily and that he was taking those yesterday. He was unresponsive that next morning and she was unable to wake him up. She states that he had been complaining of some headache and abdominal pain. He was then transported to the ED for evaluation. Patient has not used drugs in 3-1/2 years. Does not use alcohol While in the emergency department patient's stated that they do not wish for him to be transferred back to [facility] and agreed to have him admitted at this facility for treatment of acute issues and for comfort measures. Patient's initial lab work while in the emergency department showed severe hyperkalemia at 6.2 and hyponatremia at 126. Patient had thrombocytopenia with a platelet count of 51. Patient's stated that his discharge ammonia level was less than 100 approximately a week and a half ago at [facility], but on admission his ammonia level was 277. Patient's prognosis was discussed at length with and mother who had stated that they have decided to take a palliative approach for his care and remove him from the transplant list. They agreed with recommendations of having hospice come in and evaluate patient with a goal of taking him home for terminal care. Family at bedside. Patient resting comfortably. Discharge discussed with: patient, family, nurse, social work - Time Spent with Patient Total time spent providing and/or coordinating discharge services: Time spent: Less than 30 minutes, Greater than 30 minutes - Discharge Medications Prescriptions: No Action Omeprazole [PriLOSEC] 40 mg PO BID Lactulose 20 gm PO DAILY Tiotropium [Spiriva] 2 puff IH 0700 Albuterol Sulfate [Proair Hfa] 2 puff IH Q4H PRN PRN Reason: Shortness Of Breath Fluticasone/Salmeterol [Advair 250-50 Diskus] 1 puff IH BID Spironolactone [Aldactone] 200 mg PO BID Rifaximin [Xifaxan] 550 mg PO BID Bumetanide [Bumex] 3 mg PO DAILY Ondansetron HCl [Zofran] 4 mg PO QID PRN PRN Reason: Nausea Gabapentin [Neurontin] 300 mg PO TID Cyclobenzaprine HCl 10 mg PO TID PRN PRN Reason: Pain Home Medications: Albuterol Sulfate [Proair Hfa] 2 puff IH Q4H PRN 01/07/18 [History] Fluticasone/Salmeterol [Advair 250-50 Diskus] 1 puff IH BID 01/07/18 [History] Tiotropium [Spiriva] 2 puff IH 0700 01/07/18 [History] Omeprazole [PriLOSEC] 40 mg PO BID 05/26/18 [History] Rifaximin [Xifaxan] 550 mg PO BID 08/13/18 [History] Spironolactone [Aldactone] 200 mg PO BID 08/13/18 [History] Lactulose 20 gm PO DAILY 09/22/18 [History] Bumetanide [Bumex] 3 mg PO DAILY 10/01/18 [History] Cyclobenzaprine HCl 10 mg PO TID PRN 01/26/19 [History] Gabapentin [Neurontin] 300 mg PO TID 01/26/19 [History] Ondansetron HCl [Zofran] 4 mg PO QID PRN 01/26/19 [History] LORazepam [Ativan] 0.5 mg IVP Q4HR PRN 2 Days #2 ml 04/02/19 [Rx] Morphine Sulfate Oral CONC [Roxanol Oral Conc] 5 mg SL Q4HR PRN 2 Days #6 oral.syg 04/02/19 [Rx] Scopolamine Patch [Transderm-Scop] 1.5 mg TD Q72H patch.[id number] 04/02/19 [Rx] Allergies/Adverse Reactions: Allergy/AdvReac Type Severity Reaction Status Date / Time No Known Allergies Allergy Verified 02/14/19 20:22 Date of admission: 03/31/19 14:12 Primary care physician: Richie Garzon MD Consults: 03/31/19 18:39 Consult to Almond Blancher Hand [CONS] Routine Reason for SW Consult: hospice need Discharging clinician: Melanie Lilly Anticipated date of discharge: 04/02/19 - Constitutional Vitals: Temp Pulse Resp BP Pulse Ox 98.6 F 85 14 116/64 98 04/02/19 07:00 04/02/19 07:00 04/02/19 07:00 04/02/19 07:00 04/02/19 07:00 Exam: Sleeping, respirations even and unlabored - Head Head exam: Present: atraumatic, normocephalic - Eye Eye exam: Present: PERRL, conjuntiva pink, sclera anicteric Pupils: Present: PERRL - Neck Neck exam general surgery: Present: supple, trachea midline. Absent: lympha denopathy - Respiratory Respiratory exam: Present: CTAB. Absent: accessory muscle use, rales, rhonchi, wheezes - Cardiovascular Cardiovascular exam: Present: RRR, +S1, +S2. Absent: diastolic murmur, gallop, rubs, systolic murmur - GI/Abdominal GI/Abdominal exam: Present: normal bowel sounds, soft, no peritoneal signs. Absent: distended, tenderness - Extremities Exam Extremities exam: Present: warm, radial pulses palpable and symmetrical. Absent: calf tenderness, cyanotic, pedal edema - Neurological Exam Neurological exam: Present: CN II-XII intact, oriented X3, no focal deficits. Absent: pronater drift, facial droop, speech deficit - Skin Skin exam: Present: dry, intact - Patient Status Disposition: Hospice - Medical Facility Condition: Critical Functional capacity at discharge: bed bound Overall status at discharge: patient is not back to baseline - Discharge Instructions Forms: ED Satisfaction Letter - VTE Reasons for not Prescribing Prophylaxis: Medical contraindication
== END 2019-04-02 14:21 | disposition hospice, inpatient (51) | DRG 279 ==
LOC: EMEROOGRE 11:59 → INPGRE 14:12